=== PATIENT | female | born 1970 | race Two or more races ===

== ENCOUNTER 2023-09-18 16:14 | Emergency (ER) | payer OTHER ==
[~2023-09-18] VITALS: Ht 157.5 cm; Wt 79.8 kg
[2023-09-18] MEDS ORDERED: ORPHENADRINE CITRATE 30 MG/ML AMPUL IM STA (20:28)
== END 2023-09-18 20:34 | disposition home or self-care (01) ==
LOC: ER 16:16
DX: R42 Dizziness and giddiness (principal); R11.0 Nausea; R51.9 Headache, unspecified; V89.2XXA Person injured in unspecified motor-vehicle accident, traffic, initial encounter; Z88.6 Allergy status to analgesic agent

== ENCOUNTER 2023-11-20 12:50 | Emergency (ER) | payer OTHER ==
[~2023-11-20] VITALS: Ht 157.5 cm; Wt 79.4 kg
[2023-11-20] MEDS ORDERED: 0.9 % SODIUM CHLORIDE 1,000 ML IV SCH (13:30)
[2023-11-20] MEDS ORDERED: ONDANSETRON HCL 2 MG/ML VIAL IV STA (13:30)
[2023-11-20] MEDS ORDERED: MEPERIDINE HCL/PF 25 MG/ML VIAL IV ONE (13:45)
[2023-11-20 14:28] LABS: HEMATOCRIT 39.8 % (36.0-45.00); HEMOGLOBIN 13.6 g/dL (12.0-15.00); MEAN CELL VOLUME 85.8 fL (80.00-100.00); MEAN CORPUSCULAR HEMOGLOBIN 29.2 pg (27.00-32.0); PLATELET COUNT 327 K/uL (150-450); RED BLOOD COUNT 4.64 M/uL (4.00-6.00); RED CELL DISTRIBUTION WIDTH 14.1 % (11.5-14.5)
[2023-11-20 14:40] LABS: PH,URINE 6.5 (5.0-8.0); URINE APPEARANCE Clear; URINE BILIRRUBIN Negative (NEGATIVE); URINE BLOOD Large; URINE COLOR Yellow; URINE GLUCOSE Negative (NEGATIVE); URINE KETONE Trace (NEGATIVE); URINE LEUKOCYTE Trace; URINE NITRATE Negative; URINE PROTEIN 30 (NEGATIVE)
[2023-11-20 14:44] LABS: URINE BACTERIA 81.8 uL (0.0-1933); URINE EPITHELIAL CELLS 11.2 uL (0.0-38.8); URINE RBC 194.2 uL (0.0-20.8); URINE WBC 16.2 uL (0.0-23.2)
[2023-11-20 14:47] LABS: URINE CAST 1.22 uL (0.0-1.40)
[2023-11-20 14:55] LABS: CREATININE SERUM 0.62 mg/dL (0.55-1.02); GFR 99.93; POTASSIUM 3.43 mEq/L (3.5-5.1)
[2023-11-20] MEDS ORDERED: DUI500 PO (19:57)
== END 2023-11-20 20:04 | disposition home or self-care (01) ==
LOC: ER 12:51
PROVIDERS: Emergency Medicine
DX: R10.9 Unspecified abdominal pain (principal); Z88.6 Allergy status to analgesic agent; K57.30 Diverticulosis of large intestine without perforation or abscess without bleeding; N20.0 Calculus of kidney

== ENCOUNTER 2023-12-25 08:52 | Day surgery (SDC) | payer OTHER ==
[2023-12-18 14:51] VITALS: BP 134/85
[~2023-12-25] VITALS: Ht 160 cm; Wt 75.7 kg
[~2023-12-25 08:52] MED LIST: DUI500 PO
[2023-12-25] MEDS ORDERED: CEFAZOLIN SODIUM 1,000 MG VIAL IV ONE ×2 (15:00→16:00)
[2023-12-25] MEDS ORDERED: EPINEPHRINE HCL/PF 1 MG/ML AMPUL IR ONE (15:00)
[2023-12-25] MEDS ORDERED: MEPERIDINE HCL/PF 25 MG/ML VIAL IM PRN (16:00)
[2023-12-25] MEDS ORDERED: PROMETHAZINE HCL 25 MG/ML AMPUL IM PRN (16:00)
[2023-12-25] MEDS ORDERED: DUI500 PO (16:06)
[2023-12-25] MEDS ORDERED: TRAM1TAB98 PO (16:07)
[2023-12-25] MEDS ORDERED: CEFADROXIL 500 MG CAPSULE PO SCH (21:00)
== END 2023-12-25 18:15 | disposition home or self-care (01) ==
LOC: CIR.AMB 08:52
PROVIDERS: ATTEND Orthopaedic Surgery Sports Medicine
DX: M23.221 Derangement of posterior horn of medial meniscus due to old tear or injury, right knee (principal); M17.11 Unilateral primary osteoarthritis, right knee; M65.861 Other synovitis and tenosynovitis, right lower leg; Z88.6 Allergy status to analgesic agent